=== PATIENT | female | born 1955 | race Caucasian/White ===

== ENCOUNTER 2021-03-04 06:52 | Inpatient (IN) ==
[2021-03-04] MEDS ORDERED: methylPREDNISolone 125 MG/2 ML VIAL IVP ONE (07:32)
[2021-03-04] MEDS ORDERED: Isovue-370 500 ML BOTTLE IVP ONE (07:32)
[2021-03-04 07:47] LABS: Basophils % 0.1 %; Hematocrit 46.4 % (35.3-44.9); Hemoglobin 14.9 g/dL (11.5-15.4); Immature Granulocytes % 0.4 % (0-4); Lymphocytes # 0.6 K/mcL (0.6-4.6); Lymphocytes % 7.7 %; Mean Corpuscular HGB Conc 32.1 g/dL (31.6-35.5); Mean Corpuscular Volume 84.2 fL (83.0-100.0); Mean Platelet Volume 8.8 fL (9.4-12.4); Monocytes # 0.2 K/mcL (0.0-1.3); Monocytes % 3.4 %; Neutrophils # 6.3 K/mcL (1.6-8.9); Platelet Count 261 K/mcL (140-400); Red Blood Count 5.51 M/mcL (3.82-4.97); Red Cell Distribution Width 14.3 % (11.5-14.5); Segmented Neutrophils % 88.4 %; White Blood Count 7.1 K/mcL (4.3-11.1)
[2021-03-04] MEDS: 0.9 % Sodium Chloride 1,000 ML IVC SCH ×2 (07:55→16:28)
[2021-03-04 07:57] LABS: INR 1.1; Prothrombin Time 12.2 Seconds (9.4-12.1)
[2021-03-04 07:59] LABS: Activated Partial Thrombo Time 27.3 Seconds (26.0-36.0)
[2021-03-04 08:05] LABS: Alanine Aminotransferase 16 Units/L (7-52); Albumin 3.9 g/dL (3.5-5.7); Alkaline Phosphatase 48 Units/L (34-104); Aspartate Amino Transferase 24 Units/L (13-39); BUN/Creatinine Ratio 26 (6-26); Bilirubin,Total 0.5 mg/dL (0.3-1.0); Blood Urea Nitrogen 32 mg/dL (8-23); Calcium 9.3 mg/dL (8.6-10.3); Carbon Dioxide 21 mEq/L (23-29); Chloride 96 mEq/L (98-107); Globulin 3.9 g/dL (2.4-3.5); Glucose 144 mg/dL (70-105); Osmolality,Calculated 283 (280-300); Potassium 4.4 mEq/L (3.5-5.1); Sodium 132 mEq/L (136-145); Total Protein 7.8 g/dL (6.4-8.9); eGFR For African Americans 53 (> 60); eGFR For Non-African Americans 44 (> 60)
[2021-03-04 08:08] LABS: Troponin I < 0.03 ng/mL (< 0.04)
[2021-03-04] MEDS ORDERED: Ondansetron 4 MG/2 ML VIAL IVP PRN (10:43)
[2021-03-04] MEDS ORDERED: Acetaminophen 325 MG TABLET PO PRN ×2 (10:43)
[2021-03-04] MEDS ORDERED: *HR* HYDROcodone/Acet 5/325 mg TABLET PO PRN (10:43)
[2021-03-04] MEDS ORDERED: Naloxone 0.4 MG/ML INJ IVP PRN (10:43)
[2021-03-04] MEDS ORDERED: Dexamethasone Sodium Phos/PF 10 MG/ML VIAL IVP SCH (10:50)
[2021-03-04] MEDS ORDERED: Azithromycin 500 MG in 0.9 % Sodium Chloride 250 ML IVPB SCH (11:00)
[2021-03-04] MEDS ORDERED: predniSONE 10 MG TABLET PO SCH (13:15)
[2021-03-04] MEDS ORDERED: Perflutren Lipid Microsphere 1.3 ML in 0.9 % Sodium Chloride 8.7 ML IVP PRN (14:48)
[2021-03-04 20:08] VITALS: RESP 18
[2021-03-04] MEDS ORDERED: NON-FORMULARY MEDICATION 1 EACH EACH (Omega-3 Fatty Acids [Fish Oil] 300 MG Capsule) PO SCH (21:00)
[2021-03-05] MEDS ORDERED: *HR* Dextrose 50 % in Water (Vial) 50 ML VIAL IVP PRN (01:20)
[2021-03-05] MEDS ORDERED: Dextrose Gel 15 GM/37.5 ML TUBE PO PRN ×2 (01:20)
[2021-03-05] MEDS ORDERED: D5% in Water 1,000 ML IVC PRN (01:20)
[2021-03-05] MEDS ORDERED: Insulin LISPRO 300 UNITS/3 ML VIAL SUBQ SCH (01:21)
[2021-03-05] MEDS: 0.9 % Sodium Chloride 1,000 ML IVC SCH (01:59)
[2021-03-05 02:49] VITALS: BP 127/80; PULSE 81; TEMP 97; O2SAT 88
[2021-03-05] MEDS ORDERED: *HR* Enoxaparin 40 MG/0.4 ML SYRINGE SQ SCH (06:00)
[2021-03-05] MEDS ORDERED: cefTRIAXone 1,000 MG in Water for inj. (sterile) 10 ML IVP SCH (09:00)
[2021-03-05] MEDS ORDERED: Famotidine 20 MG TABLET PO SCH (09:00)
[2021-03-05] MEDS ORDERED: Cholecalciferol (D-3) 1,000 UNIT (25MCG) TABLET PO SCH (09:00)
== END 2021-03-05 05:20 | disposition short-term general hospital (02) | DRG 137 ==
LOC: INPPIK 06:52 → EMEROOPIK 06:52 → INPPIK 13:21
PROVIDERS: ADMIT Family Medicine; ATTEND Family Medicine